=== PATIENT | female | born 1985 | race Caucasian/White ===

== ENCOUNTER 2016-12-16 13:15 | Emergency (ER) | payer SELFPAY ==
[~2016-12-16 13:15] MED LIST: OXYC-360 PO; [UNRECOGNIZED DRUG - OTHER]
[2016-12-16 13:32] VITALS: BP 128/72; PULSE 82; RESP 20; TEMP 98.9; O2SAT 99
[2016-12-16] MEDS ORDERED: LIDOCAINE HCL 1% 50 ML VIAL INFIL ONE (13:45)
--- NOTE | 2016-12-16 13:49 | PD ---
HPI Chief Complaint: Skin Problem Time Seen by Provider: 13:44 Travel History International Travel<30 days: No Contact w/Intl Traveler<30days: No Traveled to known affect area: No History of Present Illness HPI 31-year-old female with history of no significant past medical issues, presents today's history of right genital area swelling that started small and is now enlarging. She and eyes any fevers, unusual discharge, trouble urinating or acute bowel movement, or any other issues. Modifying Factors: None Associated Signs & Symptoms: Genital area lumps Risk Factors: None PFSH Past Medical History Anemia: Yes Cardiovascular Problems: No Cerebrovascular Accident: No Diminished Hearing: No Gastrointestinal Disorders: Yes (RECTAL FISSURES) Genitourinary: No Hiatal Hernia: No Musculoskeletal: No Reproductive: No Respiratory: No Migraines: Yes Seizures: No Ulcer: No LMP: 12 DAYS AGO : 2 Para: 0 Miscarriage: 1 Ovarian Cysts: Yes Past Surgical History Pacemaker: No Social History Alcohol Use: No (STOPPED JULY 25, 2012 WITH . NORMALLY DRINKS DAILY "2 BEERS") Tobacco Use: Yes (STOPPED SUN/03/27 PACK DAY BEFORE) Substance Use: No Allergies-Medications (Allergen,Severity, Reaction): Coded Allergies: No Known Allergies (Verified , 12/16/16) Reported Meds & Prescriptions Reported Meds & Active Scripts Active No Active Prescriptions or Reported Medications Review of Systems Except as stated in HPI: all other systems reviewed are Neg Physical Exam Narrative GENERAL: Well-nourished, well-developed young female patient in mild distress. SKIN: Focused skin assessment warm/dry. HEAD: Normocephalic. EYES: No scleral icterus. No injection or drainage. NECK: Supple, trachea midline. No JVD or lymphadenopathy. CARDIOVASCULAR: Regular rate and rhythm without murmurs, gallops, or rubs. RESPIRATORY: Breath sounds equal bilaterally. No accessory muscle use. GENITOURINARY: Normal external genitalia notable 2 cm area of induration and fluctuance in the labia majora towards the perianal area. RECTAL EXAM: No tenderness on palpation, no rectal masses. GASTROINTESTINAL: Abdomen soft, non-tender, nondistended. MUSCULOSKELETAL: No cyanosis, or edema. BACK: Nontender without obvious deformity. No CVA tenderness. Data Data Last Documented VS Vital Signs Date Time Temp Pulse Resp B/P (MAP) Pulse Ox O2 Delivery O2 Flow Rate FiO2 9/23/17 13:32 98.9 82 20 128/72 (90) 99 Orders Orders Lidocaine 1% Inj (50 Ml) (Xylocaine 1% I (12/16/16 13:45) Wound Culture And Gram Stain (12/16/16 13:44) [facility] Medical Decision Making Medical Screen Exam Complete: Yes Emergency Medical Condition: Yes Medical Record Reviewed: Yes Differential Diagnosis Labia majora abscess versus perianal abscess Narrative Course This does not appear to be a perianal abscess, does not extend towards the rectal area. However, does appear to be a labia majora abscess. I&D was done in the ER without issues. Culture sent. My plan would be to release her with follow-up to primary care physician, packing to be removed in 2 days. Care instructions given. Return for any worsening in pain, fevers, or new symptoms as needed. The plan was discussed with the patient and she states understanding. Procedures Procedure Narrative INCISION AND DRAINAGE OF ABSCESS: The area was prepped and was sterilely draped. A subcutaneous wheal of % Xylocaine 1 with a total number 2 mL was used to anesthetize the area. The area was properly anesthetized. A number small scalpel was used to make a 1-cm incision across the area of the abscess. Cultures were obtained. The abscess was drained an irrigated with normal saline. Quarter inch iodoform packing was placed in the wound. Sterile dressing applied. Patient advised to have packing removed in two days. Diagnosis Primary Impression: Abscess of labia majora Scripts No Active Prescriptions or Reported Meds Disposition: 01 DISCHARGE HOME Condition: Stable Gordon Noel MD Dec 16, 2016 13:49
== END 2016-12-16 15:13 | disposition home or self-care (01) ==
LOC: PHED 13:15
DX: N76.4 Abscess of vulva (principal); B96.89 Other specified bacterial agents as the cause of diseases classified elsewhere
CPT/HCPCS: 56405; 87070; 87185; 87205